=== PATIENT | female | born 1995 | race Two or more races ===

== ENCOUNTER 2020-10-25 19:25 | Emergency (ER) | payer OTHER ==
[~2020-10-25] VITALS: Ht 154.9 cm; Wt 104.3 kg
[2020-10-25] MEDS ORDERED: PRENATABS RX T1 EACH PO (19:47)
[2020-10-25] MEDS ORDERED: NIFEDIPINE20 MG PO (19:47)
== END 2020-10-25 22:35 | disposition home or self-care (01) ==
LOC: ER 19:25
DX: O26.891 Other specified pregnancy related conditions, first trimester (principal); S30.0XXA Contusion of lower back and pelvis, initial encounter; R10.2 Pelvic and perineal pain; V49.88XA Car occupant (driver) (passenger) injured in other specified transport accidents, initial encounter; Y93.89 Activity, other specified; Y92.488 Other paved roadways as the place of occurrence of the external cause; Y99.8 Other external cause status; Z3A.11 11 weeks gestation of pregnancy

== ENCOUNTER 2020-11-24 07:38 | Emergency (ER) | payer OTHER ==
[~2020-11-24] VITALS: Ht 154.9 cm; Wt 99.8 kg
[~2020-11-24 07:38] MED LIST: NIFEDIPINE20 MG PO; PRENATABS RX T1 EACH PO
== END 2020-11-24 14:05 | disposition home or self-care (01) ==
LOC: ER 07:38
DX: O21.8 Other vomiting complicating pregnancy (principal); Z3A.16 16 weeks gestation of pregnancy

== ENCOUNTER 2020-12-17 04:25 | Emergency (ER) | payer OTHER ==
[~2020-12-17] VITALS: Ht 154.9 cm; Wt 102.1 kg
== END 2020-12-17 12:56 ==
LOC: ER 04:25
DX: O26.852 Spotting complicating pregnancy, second trimester (principal); O23.42 Unspecified infection of urinary tract in pregnancy, second trimester; O26.842 Uterine size-date discrepancy, second trimester; O26.892 Other specified pregnancy related conditions, second trimester; Z3A.22 22 weeks gestation of pregnancy

== ENCOUNTER → 2020-12-29 | Outpatient (CLI) | payer OTHER | END | disposition home or self-care (01) | LOC: PRENATAL 13:00 | PROVIDERS: ATTEND Obstetrics & Gynecology Maternal & Fetal Medicine | DX: O35.0XX1 Maternal care for (suspected) central nervous system malformation in fetus, fetus 1 (principal); O35.3XX1 Maternal care for (suspected) damage to fetus from viral disease in mother, fetus 1; O98.512 Other viral diseases complicating pregnancy, second trimester; Z36.89 Encounter for other specified antenatal screening; Z3A.20 20 weeks gestation of pregnancy ==

== ENCOUNTER 2021-02-19 21:35 | Inpatient (IN) | payer OTHER ==
[~2021-02-19] VITALS: Ht 154.9 cm; Wt 104.3 kg
[2021-02-19] MEDS ORDERED: METRONIDAZOLE500 MG PO (21:45)
[2021-02-19] MEDS ORDERED: ECOTRIN81 MG PO (21:46)
== END 2021-02-21 14:50 | disposition home or self-care (01) | DRG 833 ==
LOC: OBS/DEL 21:35 → LDR 02-20 17:12
PROVIDERS: ADMIT Obstetrics & Gynecology Obstetrics; ATTEND Obstetrics & Gynecology Obstetrics
PROC: 4A1HXFZ Monitoring of Products of Conception, Cardiac Rhythm, External Approach (ICD-10-PCS; principal; 2021-02-20)
PROC: BY4CZZZ Ultrasonography of Second Trimester, Single Fetus (ICD-10-PCS; 2021-02-20)
DX: O47.02 False labor before 37 completed weeks of gestation, second trimester (principal); Z3A.27 27 weeks gestation of pregnancy

== ENCOUNTER → 2021-03-27 | Outpatient (CLI) | payer OTHER ==
[~2021-03-27] MED LIST changes: +ECOTRIN81 MG PO; +METRONIDAZOLE500 MG PO
== END | disposition home or self-care (01) ==
LOC: PRENATAL 02-27 13:00
PROVIDERS: ATTEND Obstetrics & Gynecology Maternal & Fetal Medicine
DX: O26.843 Uterine size-date discrepancy, third trimester (principal); O10.013 Pre-existing essential hypertension complicating pregnancy, third trimester; O99.891 Other specified diseases and conditions complicating pregnancy; O99.213 Obesity complicating pregnancy, third trimester; Z36.89 Encounter for other specified antenatal screening; Z3A.33 33 weeks gestation of pregnancy